=== PATIENT | male | born 1970 | race Two or more races ===

== ENCOUNTER 2018-10-29 12:10 | Emergency (ER) | payer MEDICAID ==
[~2018-10-29] VITALS: Ht 175.3 cm; Wt 79.4 kg
[~2018-10-29 12:10] MED LIST: AMLO10TA7 PO; ATOR10TA PO; IBUP200C2 PO; VALS80TA2 PO
[2018-10-29 12:14] VITALS: BP 174/99
== END 2018-10-29 12:30 | disposition home or self-care (01) ==
LOC: ER 12:13
DX: S30.810A Abrasion of lower back and pelvis, initial encounter (principal); S70.312A Abrasion, left thigh, initial encounter; F17.200 Nicotine dependence, unspecified, uncomplicated; W54.0XXA Bitten by dog, initial encounter; Y93.89 Activity, other specified; Y92.89 Other specified places as the place of occurrence of the external cause; Y99.8 Other external cause status

== ENCOUNTER 2018-12-21 18:03 | Emergency (ER) | payer MEDICAID ==
--- NOTE | 2018-12-21 18:15 | NUR ---
CALLED, NOT IN THE WAITING ROOM.
--- NOTE | 2018-12-21 18:56 | NUR ---
PT LEFT W/OUT BEING TRIAGE
== END 2018-12-21 19:05 | disposition left against medical advice (07) ==
LOC: ER 18:03
DX: Z53.21 Procedure and treatment not carried out due to patient leaving prior to being seen by health care provider (principal)

== ENCOUNTER 2019-01-29 17:54 | Emergency (ER) | payer MEDICAID ==
[~2019-01-29] VITALS: Ht 172.7 cm; Wt 78.0 kg
[2019-01-29] MEDS ORDERED: TRAMADOL HCL 50 MG TABLET PO ONE (18:30)
--- NOTE | 2019-01-29 18:30 | NUR ---
patient arrived ambulatory. a&o x 4, no acute distress. with c/o left thumb swellin
[2019-01-29] MEDS ORDERED: TRAMADOL HCL 50 MG TABLET ONE (18:43)
--- NOTE | 2019-01-29 18:51 | NUR ---
Patient discharged to home in stable condition. Written and verbal after care instructions given. Patient verbalizes understanding of instruction. written instructions provided to patient
[2019-01-29 18:52] VITALS: BP 138/80
== END 2019-01-29 18:52 | disposition home or self-care (01) ==
LOC: ER 17:54
DX: M79.645 Pain in left finger(s) (principal); F17.200 Nicotine dependence, unspecified, uncomplicated; F12.90 Cannabis use, unspecified, uncomplicated

== ENCOUNTER 2019-02-01 15:03 | Emergency (ER) | payer MEDICAID ==
[~2019-02-01] VITALS: Ht 170.2 cm; Wt 70.8 kg
[2019-02-01 15:17] VITALS: BP 133/71
[2019-02-01] MEDS ORDERED: LIDOCAINE HCL/MPF 1% 30 ML VIAL IJ ONE (15:23)
[2019-02-01] MEDS ORDERED: LIDOCAINE 2% 20 ML MDV ONE (15:36)
[2019-02-01] MEDS ORDERED: ACETAMINOPHEN ES 500 MG TABLET ONE (15:37)
[2019-02-01] MEDS ORDERED: TRAMADOL HCL 50 MG TABLET ONE ×2 (15:56→16:17)
[2019-02-01] MEDS ORDERED: ACETAMINOPHEN ES 500 MG TABLET PO ONE (16:00)
[2019-02-01] MEDS ORDERED: LIDOCAINE HCL/PF 2 % 5ML SDV 5 ML VIAL IJ ONE (16:00)
[2019-02-01] MEDS ORDERED: TRAMADOL HCL 50 MG TABLET PO ONE ×2 (16:30)
== END 2019-02-01 16:47 | disposition home or self-care (01) ==
LOC: ER 15:07
DX: L03.012 Cellulitis of left finger (principal); F17.200 Nicotine dependence, unspecified, uncomplicated
CPT/HCPCS: 10060; 99283; A6402; J3490

== ENCOUNTER 2019-04-10 13:58 | Emergency (ER) | payer MEDICAID, OTHER ==
[~2019-04-10] VITALS: Ht 170.2 cm; Wt 72.6 kg
--- NOTE | 2019-04-10 14:30 | NUR ---
PT WAS BIB [facility] IN CUSTODY WITH A C/O ABD PAIN. PT IS AA&O X4. PT IS IN BILATERAL HANDCUFFS AND BLE SHACKLES/CHAINS. PT IS ON THE MONITOR AND CONTINUOUS PULSE OX.
[2019-04-10] MEDS ORDERED: MAG HYDROX/AL HYDROX/SIMETH 30 ML UDC ONE (14:45)
[2019-04-10] MEDS ORDERED: LIDOCAINE VISCOUS 2% UD 15 ML UDC ONE (14:45)
[2019-04-10] MEDS ORDERED: clonazePAM 1 MG TABLET ONE (14:45)
[2019-04-10] MEDS ORDERED: FAMOTIDINE (20 MG) 20 MG TABLET ONE (14:46)
[2019-04-10] MEDS ORDERED: TRAMADOL HCL 50 MG TABLET ONE (14:46)
[2019-04-10 14:51] LABS: BASOPHILS % (AUTO) 0.6 % (0.0-2.0); EOSINOPHILS % (AUTO) 0.8 % (0.0-6.0); HEMATOCRIT 44 % (39-51); LYMPHOCYTES # (AUTO) 1.4 /CMM (0.8-4.8); LYMPHOCYTES % (AUTO) 18.5 % (20.0-44.0); MEAN CORPUSCULAR HGB CONC 34 g/dl (31.0-36.0); MEAN CORPUSCULAR VOLUME 91 fL (80-96); MONOCYTES # (AUTO) 0.5 /CMM (0.1-1.30); NEUTROPHILS # (AUTO) 5.5 /CMM (1.8-8.9); NEUTROPHILS % (AUTO) 73.1 % (43.0-81.0); PLATELET COUNT (AUTO) 226 /CMM (150-450); RED BLOOD CELL COUNT(AUTO) 4.86 MIL/uL (4.5-6.0); WHITE BLOOD COUNT (AUTO) 7.5 K/uL (4.3-11.0)
[2019-04-10 14:58] LABS: CALCIUM, SERUM 9.1 mg/dL (8.5-10.1); POTASSIUM 3.9 mmol/L (3.5-5.1)
[2019-04-10] MEDS ORDERED: FAMOTIDINE (20 MG) 20 MG TABLET PO ONE (15:00)
[2019-04-10] MEDS ORDERED: MAG HYDROX/AL HYDROX/SIMETH 30 ML UDC PO ONE (15:00)
[2019-04-10] MEDS ORDERED: clonazePAM 1 MG TABLET PO ONE (15:00)
[2019-04-10] MEDS ORDERED: TRAMADOL HCL 50 MG TABLET PO ONE (15:00)
[2019-04-10] MEDS ORDERED: LIDOCAINE VISCOUS 2% UD 15 ML UDC MM ONE (15:00)
--- NOTE | 2019-04-10 15:08 | NUR ---
XRAY IN PROGRESS
--- NOTE | 2019-04-10 15:27 | NUR ---
Patient discharged to [facility] in stable condition. Written and verbal after care instructions given. Patient verbalizes understanding of instruction. PT AMBULATED OUT IN HANDCUFFS AND CHAINS. VSS. PT WAS MEDICALLY CLEARED FOR BOOKING. NAD NOTED.
[2019-04-10 15:49] VITALS: BP 127/80
== END 2019-04-10 15:30 ==
LOC: ER 14:00
DX: R10.13 Epigastric pain (principal); I10 Essential (primary) hypertension; F17.200 Nicotine dependence, unspecified, uncomplicated; Z79.899 Other long term (current) drug therapy
CPT/HCPCS: 36415; 74021; 80048-TC; 83690-TC; 85025-TC